=== PATIENT | female | born 1995 | race Caucasian/White ===

== ENCOUNTER 2017-12-30 07:48 | Outpatient (CLI) | payer MEDICAID ==
[2017-12-30 08:46] LABS: ADD UMIC YES; UR AMORPHOUS CRYSTAL FEW /HPF (NONE SEEN); UR ASCORBIC ACID NEGATIVE (NEGATIVE); UR BACTERIA FEW /HPF (NONE SEEN); UR BILIRUBIN (Dip) NEGATIVE (NEGATIVE); UR BLOOD (Dip) 2+ mg/dL (NEGATIVE); UR CLARITY CLOUDY (CLEAR); UR COLOR YELLOW (YELLOW); UR GLUCOSE (Dip) NEGATIVE (NEGATIVE); UR KETONES (Dip) NEGATIVE (NEGATIVE); UR LEUKOCYTE ESTERASE (Dip) 3+ Leu/ul (NEGATIVE); UR NITRITE (Dip) NEGATIVE (NEGATIVE); UR RBC 40 /HPF (0-5); UR SPECIFIC GRAVITY (Dip) 1.004 (1.003-1.030); UR SQUAMOUS EPITHELIAL CELL FEW /HPF (FEW); UR TOTAL PROTEIN (Dip) NEGATIVE (NEGATIVE); UR UROBILINOGEN (Dip) NEGATIVE (NEGATIVE); UR WBC 19 /HPF (0-5)
[2017-12-31] MEDS ORDERED: LIDOCAINE 1% (MDV) 20 ML INJ (12:28)
[2017-12-31] MEDS ORDERED: IODIXANOL LOCM 100 ML BTL (12:28)
[2017-12-31] MEDS ORDERED: HEPARIN 1000 UNITS/ML 10 ML INJ (12:28)
[2017-12-31] MEDS ORDERED: MIDAZOLAM 1 MG/ML 2 ML INJ (12:29)
[2017-12-31] MEDS ORDERED: FENTAnyl 50 MCG/ML VIAL (12:29)
[2017-12-31] MEDS ORDERED: VERAPAMIL 5 MG INJ (12:29)
[2017-12-31] MEDS ORDERED: NITROGLYCERIN (IC) 100 MCG/ML INJ (12:29)
[2017-12-31] MEDS ORDERED: SOD CHLORIDE 0.9% 500 ML (12:30)
== END 2017-12-30 09:45 | disposition home or self-care (01) ==
LOC: OBT 07:48 → L-D 07:49 → OBT 09:45
DX: O62.9 Abnormality of forces of labor, unspecified (principal); O24.410 Gestational diabetes mellitus in pregnancy, diet controlled; Z3A.32 32 weeks gestation of pregnancy
CPT/HCPCS: 76818; 81001; 82962; 87086

== ENCOUNTER 2018-01-10 12:48 | Inpatient (IN) | payer MEDICAID ==
[2018-01-10] MEDS ORDERED: MISOPROSTOL 200 MCG TAB PR (13:30)
[2018-01-10] MEDS ORDERED: METHYLERGONOVINE 0.2 MG INJ IM (13:30)
[2018-01-10] MEDS ORDERED: CARBOPROST 250 MCG INJ IM (13:30)
[2018-01-10] MEDS ORDERED: OXYTOCIN 30 UNITS/LR 500 ML IV ×2 (13:30)
[2018-01-10] MEDS: LACTATED RINGER'S 1,000 ML IV ×2 (13:33→21:20)
[2018-01-10 13:50] LABS: ADD MAN DIFF? NO
[2018-01-10 13:52] LABS: WHITE BLOOD COUNT 7.9 10^3/ul (4.8-10.8)
[2018-01-10 13:52] LABS: BASOPHILS % 0.3 % (0.0-2.0); HEMATOCRIT 33.9 % (37.0-47.0); LYMPHOCYTES # 1.8 10^3/ul (0.8-2.9); LYMPHOCYTES % 22.7 % (15.0-51.0); MEAN CORPUSCULAR HEMOGLOBIN 32.9 pg (29.0-33.0); MEAN CORPUSCULAR HGB CONC 35.4 g/dl (32.0-37.0); MEAN CORPUSCULAR VOLUME 92.9 fl (82.0-101.0); MEAN PLATELET VOLUME 10.5 fl (7.4-10.4); MONOCYTE # 0.5 10^3/ul (0.3-0.9); MONOCYTES % 6.8 % (0.0-11.0); NEUTROPHIL # 5.5 10^3/ul (1.6-7.5); NEUTROPHILS % 69.6 % (39.0-77.0); PLATELET COUNT 314 10^3/UL (140-415); RED BLOOD COUNT 3.65 10^6/ul (4.20-5.40)
[2018-01-10 14:23] LABS: INR 0.85; PROTIME 11.7 Sec (11.9-14.9); PT RATIO 0.9
[2018-01-10 14:24] LABS: PARTIAL THROMBOPLASTIN TIME 23.7 Sec (25.0-35.0)
[2018-01-10 14:45] LABS: HEPATITIS B SURFACE ANTIGEN NEGATIVE (NEGATIVE)
[2018-01-10] MEDS: AMPICILLIN 2 GM/NS (PMX) 100 ML IV (15:35)
[2018-01-10] MEDS: DINOPROSTONE 10 MG VAG SUPP VAG (16:05)
[2018-01-10 16:45] LABS: RAPID PLASMA REAGIN NONREACTIVE (NR)
[2018-01-10] MEDS: AMPICILLIN 1 GM/NS (PMX) 50 ML IV (19:35)
[2018-01-11] MEDS: AMPICILLIN 1 GM/NS (PMX) 50 ML IV ×4 (00:17→12:02)
[2018-01-11] MEDS: BUTORPHANOL 2 MG INJ IV (03:54)
[2018-01-11] MEDS ORDERED: FENTAnyl 2MCG/ML-ROPIV 0.2% 100 ML (06:35)
[2018-01-11] MEDS: LACTATED RINGER'S 1,000 ML IV ×2 (07:01→13:46)
[2018-01-11] MEDS: OXYTOCIN 30 UNITS/LR 500 ML IV ×2 (14:54→16:50)
[2018-01-11] MEDS: LIDOCAINE 1% (MPF) 30 ML INJ INJ (15:31)
[2018-01-11] MEDS: IBUPROFEN 600 MG TAB PO ×2 (16:38→23:28)
[2018-01-11] MEDS ORDERED: ZOLPIDEM 5 MG TAB PO (18:30)
[2018-01-11] MEDS ORDERED: CARBOPROST 250 MCG INJ IM (18:30)
[2018-01-11] MEDS ORDERED: HYDROCODONE/APAP (5/325) TAB PO (18:30)
[2018-01-11] MEDS ORDERED: OXYTOCIN 30 UNITS/LR 500 ML IV (18:30)
[2018-01-11] MEDS ORDERED: MISOPROSTOL 200 MCG TAB PR (18:30)
[2018-01-11] MEDS ORDERED: METHYLERGONOVINE 0.2 MG INJ IM (18:30)
[2018-01-11] MEDS: MAGNESIUM HYDROXIDE 30ML CUP PO (20:08)
[2018-01-11] MEDS: LACTATED RINGER'S 1,000 ML IV* (20:08)
[2018-01-11] MEDS: SENNA/DOCUSATE NA (8.6MG/50MG) TAB PO (20:08)
[2018-01-11] MEDS: ACCU-CHEK XX ×2 (21:50)
[2018-01-11] MEDS: CEPHALEXIN 500 MG CAP PO (23:28)
[2018-01-11] MEDS: WITCH HAZEL/GLYCERIN PAD PR (23:28)
[2018-01-11] MEDS: BENZOCAINE 20% 56 ML SPRAY TOP (23:28)
[2018-01-12] MEDS: CEPHALEXIN 500 MG CAP PO ×4 (05:36→23:43)
[2018-01-12] MEDS: IBUPROFEN 600 MG TAB PO ×4 (05:36→23:43)
[2018-01-12] MEDS: SENNA/DOCUSATE NA (8.6MG/50MG) TAB PO ×2 (08:55→21:58)
[2018-01-12] MEDS: MAGNESIUM HYDROXIDE 30ML CUP PO ×2 (08:55→21:58)
[2018-01-12 09:37] LABS: ADD MAN DIFF? NO
[2018-01-12 09:46] LABS: BASOPHILS % 0.1 % (0.0-2.0); EOSINOPHILS % 0.1 % (0.0-7.0); HEMATOCRIT 27.7 % (37.0-47.0); HEMOGLOBIN 9.6 g/dl (12.0-16.0); LYMPHOCYTES # 2.4 10^3/ul (0.8-2.9); LYMPHOCYTES % 15.5 % (15.0-51.0); MEAN CORPUSCULAR HEMOGLOBIN 32.2 pg (29.0-33.0); MEAN CORPUSCULAR HGB CONC 34.7 g/dl (32.0-37.0); MEAN PLATELET VOLUME 10.8 fl (7.4-10.4); MONOCYTE # 0.9 10^3/ul (0.3-0.9); MONOCYTES % 5.4 % (0.0-11.0); NEUTROPHIL # 12.4 10^3/ul (1.6-7.5); NEUTROPHILS % 78.3 % (39.0-77.0); PLATELET COUNT 243 10^3/UL (140-415); RED BLOOD COUNT 2.98 10^6/ul (4.20-5.40); RED CELL DISTRIBUTION WIDTH 13.2 % (11.5-14.5)
[2018-01-12 09:46] LABS: WHITE BLOOD COUNT 15.8 10^3/ul (4.8-10.8)
[2018-01-12] MEDS: HYDROCODONE/APAP (5/325) TAB PO (10:25)
[2018-01-12] MEDS: ACCU-CHEK XX ×4 (13:50→21:50)
[2018-01-13] MEDS: INFLUENZA VIRUS VACCINE 0.5 ML SYG IM* (05:07)
[2018-01-13] MEDS: IBUPROFEN 600 MG TAB PO ×2 (06:00→11:09)
[2018-01-13] MEDS: CEPHALEXIN 500 MG CAP PO ×2 (06:44→11:08)
[2018-01-13] MEDS: ACCU-CHEK XX (07:30)
[2018-01-13] MEDS: MAGNESIUM HYDROXIDE 30ML CUP PO (09:00)
[2018-01-13] MEDS: WITCH HAZEL/GLYCERIN PAD PR (09:33)
[2018-01-13] MEDS: DIBUCAINE 1% 30 GM OINT PR (09:33)
[2018-01-13] MEDS: LANOLIN 7 GM TUBE TOP (09:33)
[2018-01-13] MEDS: BENZOCAINE 20% 56 ML SPRAY TOP (09:33)
[2018-01-13] MEDS: SENNA/DOCUSATE NA (8.6MG/50MG) TAB PO (09:33)
[2018-01-13] MEDS: MEASLES,MUMPS,RUBELLA VACCINE INJ SC* (09:34)
[2018-01-13] MEDS: VARICELLA VACCINE LIVE/PF 1,350 UNIT/0.5 ML ML SC* (09:34)
[2018-01-13 11:23] LABS: ADD MAN DIFF? NO
[2018-01-13 11:25] LABS: WHITE BLOOD COUNT 12.2 10^3/ul (4.8-10.8)
[2018-01-13 11:25] LABS: BASOPHIL # 0.1 10^3/ul (0.0-0.1); BASOPHILS % 0.4 % (0.0-2.0); EOSINOPHILS # 0.2 10^3/ul (0.0-0.5); EOSINOPHILS % 1.6 % (0.0-7.0); HEMATOCRIT 29.5 % (37.0-47.0); HEMOGLOBIN 10.1 g/dl (12.0-16.0); LYMPHOCYTES # 2.8 10^3/ul (0.8-2.9); LYMPHOCYTES % 22.9 % (15.0-51.0); MEAN CORPUSCULAR HEMOGLOBIN 32.6 pg (29.0-33.0); MEAN CORPUSCULAR HGB CONC 34.2 g/dl (32.0-37.0); MEAN CORPUSCULAR VOLUME 95.2 fl (82.0-101.0); MEAN PLATELET VOLUME 10.3 fl (7.4-10.4); MONOCYTE # 0.7 10^3/ul (0.3-0.9); MONOCYTES % 5.3 % (0.0-11.0); NEUTROPHIL # 8.5 10^3/ul (1.6-7.5); NEUTROPHILS % 69.2 % (39.0-77.0); PLATELET COUNT 263 10^3/UL (140-415); RED CELL DISTRIBUTION WIDTH 13.1 % (11.5-14.5)
[2018-01-13] MEDS: DIPHTH/TET/ACEL PERTUSS (ADULT) 0.5 ML VIAL IM* (11:47)
== END 2018-01-13 15:38 | disposition home or self-care (01) | DRG 775 ==
LOC: L-D 12:48 → PP1 01-11 18:00
PROVIDERS: Obstetrics & Gynecology
PROC: 10D07Z6 Extraction of Products of Conception, Vacuum, Via Natural or Artificial Opening (ICD-10-PCS; principal; 2018-01-11)
PROC: 0W8NXZZ Division of Female Perineum, External Approach (ICD-10-PCS; 2018-01-11)
PROC: 3E033VJ Introduction of Other Hormone into Peripheral Vein, Percutaneous Approach (ICD-10-PCS; 2018-01-11)
DX: O24.429 Gestational diabetes mellitus in childbirth, unspecified control (principal); O48.0 Post-term pregnancy; Z3A.40 40 weeks gestation of pregnancy; O69.81X0 Labor and delivery complicated by cord around neck, without compression, not applicable or unspecified; O76 Abnormality in fetal heart rate and rhythm complicating labor and delivery; Z37.0 Single live birth
CPT/HCPCS: 62319; 76815; 82962; 85025; 85610; 85730; 86592; 86850; 86900; 86901; 87340; 90686; 90715; 99464